=== PATIENT | male | born 2000 | race Caucasian/White ===

== ENCOUNTER 2023-07-03 08:52 | Emergency (ER) | payer MEDICAID, OTHER ==
[~2023-07-03] VITALS: Ht 180.3 cm; Wt 85.7 kg
[2023-07-03 10:50] VITALS: BP 124/82; PULSE 82; RESP 18; TEMP 98; O2SAT 98
[2023-07-03] MEDS ORDERED: NAP500T PO (11:46)
== END 2023-07-03 12:00 | disposition home or self-care (01) ==
LOC: ER 08:52
DX: S83.92XA Sprain of unspecified site of left knee, initial encounter (principal); X50.1XXA Overexertion from prolonged static or awkward postures, initial encounter; Y93.89 Activity, other specified; Y92.89 Other specified places as the place of occurrence of the external cause; Y99.8 Other external cause status
CPT/HCPCS: 73562